=== PATIENT | female | born 1980 | race Caucasian/White ===

== ENCOUNTER 2022-05-04 13:14 | Emergency (ER) | payer MEDICAID ==
[~2022-05-04] VITALS: Ht 175.3 cm; Wt 61.2 kg
[2022-05-04 14:19] VITALS: BP 156/109
[2022-05-04] MEDS ORDERED: MELO7.5T9 PO (15:32)
[2022-05-04] MEDS ORDERED: CEPH-510 PO (15:32)
== END 2022-05-04 15:37 | disposition home or self-care (01) ==
LOC: ER 13:14
DX: L84 Corns and callosities (principal); L08.9 Local infection of the skin and subcutaneous tissue, unspecified
CPT/HCPCS: 73630